=== PATIENT | female | born 1940 | race Caucasian/White ===

== ENCOUNTER 2019-05-20 07:55 | Emergency (ER) | payer MEDICARE, OTHER ==
--- NOTE | 2019-05-20 08:31 | EDM.PDOC ---
<Juliocesar Benjamin - Last Filed: 05/20/19 10:47> ED HPI GENERAL MEDICAL PROBLEM - General Chief Complaint: Cardiovascular Problem Stated Complaint: WALK IN FROM STRESS TEST Time Seen by Provider: 05/20/19 08:21 Source of Information: Reports: Patient History Limitations: Reports: No Limitations - History of Present Illness INITIAL COMMENTS - FREE TEXT/NARRATIVE: 78 year old female who comes to the ED after having a stress test today. Pt started the treadmill test and went into SVT. Pt states that she felt chest pressure and became short of breath and dizzy. Pt states that once she stopped and sat for a few minutes the symptoms resolved. Pt reports a history of palpitations for 3-4months. Pt states that palpitations occur while she is laying in bed at night or with activity. Reports chests pressure, dyspnea, and dizziness. Symptoms resolve with rest. She is retired and lives in [place] with her . Her physician is NARA Mendez. Has had a 24 hour holter monitor which was unremarkable per the patient's report. 2 days ago had a overnight pulse oximeter which was unremarkable as well. Reports increased fatigue as well. - Related Data Allergies Allergy/AdvReac Type Severity Reaction Status Date / Time Penicillins Allergy Hives Verified 05/20/19 08:11 Sulfa (Sulfonamide Allergy Hives Verified 05/20/19 08:11 Antibiotics) Home Meds: Home Meds Aspirin 81 mg PO DAILY 05/20/19 [History] Cholecalciferol (Vitamin D3) [Vitamin D3] 2,000 units PO DAILY 05/20/19 [History ] Gabapentin [Neurontin] 200 mg PO TID 05/20/19 [History] Lansoprazole 15 mg PO DAILY 05/20/19 [History] Latanoprost 1 drop EYEBOTH QPM 05/20/19 [History] Levothyroxine 75 mcg PO DAILY 05/20/19 [History] Lisinopril 10 mg PO DAILY 05/20/19 [History] Magnesium 800 mg PO DAILY 05/20/19 [History] rOPINIRole [Requip] 2 mg PO BID 05/20/19 [History] Past Medical History Cardiovascular History: Reports: High Cholesterol, Hypertension Neurological History: Reports: Neuropathy, Peripheral Endocrine/Metabolic History: Reports: Hypothyroidism ED ROS GENERAL - Review of Systems Constitutional: Reports: Fatigue HEENT: Reports: No Symptoms Respiratory: Reports: Shortness of Breath Cardiovascular: Reports: Dyspnea on Exertion, Lightheadedness, Palpitations Endocrine: Reports: No Symptoms GI/Abdominal: Reports: Distension. Denies: Constipation : Reports: No Symptoms Musculoskeletal: Reports: No Symptoms Skin: Reports: No Symptoms Neurological: Reports: No Symptoms Psychiatric: Reports: No Symptoms Hematologic/Lymphatic: Reports: No Symptoms Immunologic: Reports: No Symptoms ED EXAM, GENERAL - Physical Exam Exam Limited By: No Limitations General Appearance: Alert, No Apparent Distress Throat/Mouth: Normal Inspection Head: Normocephalic Neck: Normal Inspection, Non-Tender Respiratory/Chest: No Respiratory Distress, Lungs Clear, Normal Breath Sounds, Chest Non-Tender Cardiovascular: Normal Peripheral Pulses, Regular Rate, Rhythm, No Edema, No Murmur GI/Abdominal: Normal Bowel Sounds, Soft, Non-Tender, No Organomegaly Back Exam: Normal Inspection Extremities: Normal Inspection, No Pedal Edema Neurological: Alert, Oriented, Normal Cognition Psychiatric: Normal Affect, Normal Mood Skin Exam: Warm, Dry, Intact, Normal Color Course - Vital Signs Last Recorded V/S: Last Vital Signs Temp 98.2 F 05/20/19 08:06 Pulse 52 L 05/20/19 10:06 Resp 16 05/20/19 10:06 BP 116/55 L 05/20/19 10:06 Pulse Ox 95 05/20/19 10:06 Orthostatic Blood Pressure [ 129/60 Standing] Orthostatic Blood Pressure [ 130/62 Sitting] Orthostatic Blood Pressure [ 130/53 Supine] - Orders/Labs/Meds Orders: Active Orders 24 hr Category Date Time Status EKG 12 Lead [EKG Documentation Completion] [RC] STAT Care 05/20/19 08:44 Active Orthostatic Vital Signs [RC] ASDIRECTED Care 05/20/19 10:17 Active Labs: Laboratory Tests 05/20/19 05/20/19 Range/Units 09:11 09:11 WBC 5.96 (3.98-10.04) K/mm3 RBC 4.34 (3.98-5.22) M/mm3 Hgb 9.9 L (11.2-15.7) gm/dl Hct 32.9 L (34.1-44.9) % MCV 75.8 L (79.4-94.8) fl MCH 22.8 L (25.6-32.2) pg MCHC 30.1 L (32.2-35.5) g/dl RDW Std Deviation 41.5 (36.4-46.3) fL Plt Count 370 H (182-369) K/mm3 MPV 9.4 (9.4-12.3) fl Neut % (Auto) 56.5 (34.0-71.1) % Lymph % (Auto) 27.5 (19.3-51.7) % [place] % (Auto) 9.9 (4.7-12.5) % Eos % (Auto) 4.7 (0.7-5.8) Baso % (Auto) 1.2 (0.1-1.2) % Neut # (Auto) 3.37 (1.56-6.13) K/mm3 Lymph # (Auto) 1.64 (1.18-3.74) K/mm3 [place] # (Auto) 0.59 H (0.24-0.36) K/mm3 Eos # (Auto) 0.28 (0.04-0.36) K/mm3 Baso # (Auto) 0.07 (0.01-0.08) K/mm3 Sodium 141 (136-145) mEq/L Potassium 4.3 (3.5-5.1) mEq/L Chloride 106 (98-107) mEq/L Carbon Dioxide 26 (21-32) mEq/L Anion Gap 13.3 (5-15) BUN 20 H (7-18) mg/dL Creatinine 1.0 (0.55-1.02) mg/dL Est Cr Clr Drug Dosing 39.39 mL/min Estimated GFR (MDRD) 53 (>60) mL/min BUN/Creatinine Ratio 20.0 H (14-18) Glucose 100 (83-115) mg/dL Calcium 9.0 (8.5-10.1) mg/dL Total Bilirubin 0.5 (0.2-1.0) mg/dL AST 23 (15-37) U/L ALT 21 (14-59) U/L Alkaline Phosphatase 84 (46-116) U/L Troponin I < 0.017 (0.00-0.056) ng/mL Total Protein 7.1 (6.4-8.2) g/dl Albumin 3.8 (3.4-5.0) g/dl Globulin 3.3 gm/dL Albumin/Globulin Ratio 1.2 (1-2) TSH 3rd Generation 3.121 (0.358-3.74) uIU/mL - Re-Assessments/Exams Free Text/Narrative Re-Assessment/Exam: 05/20/19 10:27 Pt found to be anemia with laboratory evaluation. BUN slightly elevated at 20. Inquired with patient regarding history of anemia and she denies this as ever being a problem. Denies black or tarry stools. Reports bowel movement daily. Orthostatic blood pressures ordered. 05/20/19 10:48 Pt is not orthostatic at this time. Supine 130/53 HR 52, Sitting 130/62 HR 57, Standing 129/60 HR 62. Departure - Departure Disposition: Home, Self-Care 01 Clinical Impression: SVT (supraventricular tachycardia) Anemia Qualifiers: Anemia type: iron deficiency Instructions: Supraventricular Tachycardia, Adult, [id number], Anemia Referrals: Priti Powell SENIOR COMPLIANCE ANALYST [Primary Care Provider] - Forms: ED Department Discharge Additional Instructions: Drink plenty water to maintain hydration, continue current medications as prescribed. Start an iron supplement, twice daily for now. Follow-up with your regular medical provider early next week. Referral to cardiology will be appropriate to help further manage your episodes of SVT. Return to ED as needed. - My Orders Last 24 Hours: My Active Orders 05/20/19 08:44 EKG 12 Lead [EKG Documentation Completion] [RC] STAT - Assessment/Plan Last 24 Hours: My Active Orders 05/20/19 08:44 EKG 12 Lead [EKG Documentation Completion] [RC] STAT <Christopher Maki - Last Filed: 05/20/19 15:56> ED ROS GENERAL - Review of Systems Review Of Systems: See Below Constitutional: Denies: Fever, Chills Musculoskeletal: Denies: Shoulder Pain, Arm Pain, Back Pain Neurological: Reports: Dizziness (Mild) ED EXAM, GENERAL - Physical Exam Exam: See Below Eye Exam: Bilateral Eye: PERRL EKG INTERPRETATION EKG Date: 05/20/19 Rhythm: Other (Sinus bradycardia) [place]: Normal P-Wave: Present QRS: Normal ST-T: Normal Course - Re-Assessments/Exams Free Text/Narrative Re-Assessment/Exam: 05/20/19 15:48 Initial hx and exam was done by [employer] student. I have also taken a hx, examined patient and discussed findings observed while over getting her stress test this morning. I do agree with a history and exam as documented.. Labs did come back showing anemia with hemoglobin 9.9. It appears that this likely is chronic ascitic pattern. Patient is not aware of history of prior anemia. She has not had black tarry stool or any obvious sign of rectal bleeding or anything of that nature. She did fine with orthostatic blood pressure check. NARA Voss who was doing her stress test states that they were just a couple minutes into the stress test her walking on the treadmill when she went into SVT. Unfortunately they did not get the rhythm strip recorded and at time of exam had not been able to retrieve our printed out. Wherever he states he visualized that very definitively narrow complex rapid regular rhythm heart rate around 200 that lasted for just a very brief time. they saat her down and she immediately went back into sinus rhythm. Chemistries, troponin, chest x-ray all normal. Or in the ED she has been in sinus rhythm mostly sinus bradycardia with rate in the upper 50s. With that I am not comfortable putting her on any potentially rate slowing medicaton. I have asked that she follow-up with her regular medical provider early next week. Discharge instructions as documented. Departure - Departure Time of Disposition: 11:06 Condition: Fair
--- NOTE | 2019-05-20 09:19 | CR ---
Chest: Portable view of the chest was obtained. Comparison: No prior chest x-ray. Heart size is normal. Tortuous thoracic aorta is noted. Lungs are clear. Scoliosis is noted within the spine with mild diffuse degenerative change. Impression: 1. Findings which are felt to be incidental. 2. Nothing acute is appreciated on portable chest x-ray. Diagnostic code #2
--- NOTE | 2019-05-20 09:51 | PCM.PRNOTE ---
- Free Text/Narrative Note: Date of service: 05/20/19 Procedure: Exercise treadmill stress test Ordering provider: Priti Powell PA-C Indication: Shortness of breath with activity Baseline EKG: Sinus bradycardia at 55 bpm. The patient exercised on a standard Guilherme protocol for 1 minutes and 56 seconds. At that time patient reported an abnormal sensation in her chest and dizziness. She also reported acute shortness of breath. SVT at a rate of 208 was noted on the monitor. Test was immediately aborted and once patient stopped ambulating the rhythm converted into a sinus rhythm with occasional PACs. Episode lasted approximately 10-15 seconds. The patient was immediately assisted to the chair and blood pressure obtained. Found to be 159/53. Patient reported at that time that her dizziness, shortness of breath and chest sensation had resolved. Discussed history with patient who reports occasional "feeling like her heart is racing" at night while in bed. She reports this sensation resolved quite rapidly after onset when it happens. She also reports she has occasionally had shortness of breath and that is why the stress test was ordered. She reports she has had a Holter monitor recently which showed no abnormal rhythms. Discussion ensued about disposition and patient opted to be seen in the emergency room. Vital signs remained stable and EKG showed continued sinus rhythm with resolution of PACs. Unfortunately due to abrupt onset of rhythm and immediate need to safely stop treadmill and abort test, SVT rhythm was not recorded. Multiple attempts were made to recall rhythm strip from EKG machine but these were unsuccessful. The patient was transferred via wheelchair to ED room. Report given to Dr. Maki, ED provider. Patent remained in ED. Test terminated due to: Sudden onset of SVT accompanied by dizziness and abnormal sensation in chest. EKG changes of ischemia during stress or in recovery: None Symptoms: Abnormal chest sensation and dizziness Arrhythmias: Sudden onset SVT lasting 10-15 seconds with spontaneous conversion of rhythm. Impression: 1. Indeterminant exercise treadmill ECG for ischemia. 2. Test aborted due to SVT and patient transported to Emergency Department Report called to Dr. Escalante, who is covering for Priti Powell PA-C at [facility] on 05/21/19 at 0931.
== END 2019-05-20 11:20 | disposition home or self-care (01) ==
LOC: JD.ED 07:55
DX: I47.1 Supraventricular tachycardia (principal); D50.9 Iron deficiency anemia, unspecified; E78.00 Pure hypercholesterolemia, unspecified; I10 Essential (primary) hypertension; E03.9 Hypothyroidism, unspecified; Z88.0 Allergy status to penicillin; Z88.2 Allergy status to sulfonamides; Z79.82 Long term (current) use of aspirin; Z79.899 Other long term (current) drug therapy; Z79.890 Hormone replacement therapy
CPT/HCPCS: 36415; 71045; 71045-26; 80053; 84443; 84484; 85025; 93005; 99285-25